=== PATIENT | male | born 1970 | race Caucasian/White ===

== ENCOUNTER 2016-10-11 20:11 | Emergency (ER) | payer OTHER ==
[~2016-10-11] VITALS: Ht 177.8 cm; Wt 88.5 kg
[~2016-10-11 20:11] MED LIST: BACLOFEN; INSU3INS6 SUBCUT; LANTUS; LOSA25TA12 PO; NAPROXEN; NEURONTIN; NOVOLOG SUBCUT; PREG300C PO; TRAMADOL
[2016-10-11] MEDS ORDERED: SODIUM CHLORIDE 0.9% 1,000 ML IV ONE (20:32)
[2016-10-11] MEDS ORDERED: KETOROLAC 30MG/ML VIAL IV STA (20:32)
[2016-10-11] MEDS ORDERED: ONDANSETRON HCL 4MG/2ML VIAL IV STA (20:32)
[2016-10-11 20:55] LABS: CHLORIDE 101 mEq/L (98-107)
[2016-10-11 20:58] LABS: INR 0.9; PROTHROMBIN TIME 9.7 sec
[2016-10-11 20:59] LABS: BASOPHILS % 0.5 % (0.0-2.0); EOSINOPHILS % 2.8 % (0.0-5.0); HEMATOCRIT. 37.1 % (42.0-52.0); HEMOGLOBIN. 12.5 g/dL (14.0-18.0); LYMPHOCYTES % 25.8 % (20.0-50.0); MEAN CORPUSCULAR HEMOGLOBIN 28.1 pg (28.0-32.0); MEAN CORPUSCULAR VOLUME 83.4 fL (80.0-94.0); MEAN PLATELET VOLUME 8.9 fl (7.4-10.4); MONOCYTES % 8.3 % (2.0-8.0); NEUTROPHILS % 62.6 % (40.0-76.0); PLATELET 216 x1000/uL (130-400); RED BLOOD CELL COUNT 4.44 mill/uL (4.7-6.1); RED CELL DISTRIBUTION WIDTH 13.5 % (11.6-14.6)
[2016-10-11 21:04] LABS: CARBON DIOXIDE 27 mEq/L (21-32)
[2016-10-11] MEDS ORDERED: MORPHINE SULFATE 4 MG/ML CPJ (NOT FOR IM USE) IV ONE (22:30)
[2016-10-11 22:48] VITALS: BP 136/82
== END 2016-10-11 23:47 | disposition home or self-care (01) ==
LOC: ER 20:12
DX: E11.65 Type 2 diabetes mellitus with hyperglycemia (principal); R51 Headache; Z79.4 Long term (current) use of insulin; Z98.1 Arthrodesis status
CPT/HCPCS: 36415; 70450; 80053; 82962; 85025; 85610; 93005; 96361; 96374; 96375; 99285; J1885; J2405; Z7610; J7030

== ENCOUNTER 2017-06-08 07:49 | Emergency (ER) | payer OTHER ==
[~2017-06-08] VITALS: Ht 165.1 cm; Wt 96.0 kg
[2017-06-08] MEDS ORDERED: KETOROLAC 30MG/ML VIAL IV STA (08:31)
[2017-06-08] MEDS ORDERED: ONDANSETRON HCL 4MG/2ML VIAL IV STA (08:31)
[2017-06-08] MEDS ORDERED: FAMOTIDINE 20MG/2ML VIAL IV STA (08:31)
[2017-06-08 08:54] LABS: BASOPHILS % 0.6 % (0.0-2.0); HEMATOCRIT. 41.4 % (42.0-52.0); HEMOGLOBIN. 13.3 g/dL (14.0-18.0); LYMPHOCYTES % 22.1 % (20.0-50.0); MEAN CORPUSCULAR HEMOGLOBIN 27.4 pg (28.0-32.0); MEAN PLATELET VOLUME 8.6 fl (7.4-10.4); MONOCYTES % 6.6 % (2.0-8.0); NEUTROPHILS % 69.7 % (40.0-76.0); PLATELET 279 x1000/uL (130-400); RED BLOOD CELL COUNT 4.87 mill/uL (4.7-6.1); RED CELL DISTRIBUTION WIDTH 13.7 % (11.6-14.6)
[2017-06-08 09:00] LABS: INR 0.9; PROTHROMBIN TIME 9.5 sec (9.4-11.6)
[2017-06-08 09:01] LABS: CHLORIDE 97 mEq/L (98-107)
[2017-06-08] MEDS ORDERED: SODIUM CHLORIDE 0.9% 1,000 ML IV ONE (09:30)
[2017-06-08] MEDS ORDERED: MORPHINE SULFATE 10 MG/ML CPJ IV ONE (11:15)
[2017-06-08 11:31] LABS: CLARITY URINE CLEAR (CLEAR); COLOR URINE YELLOW (YELLOW); KETONES URINE 2+ (NEGATIVE); LEUKOCYTE ESTERASE URINE NEGATIVE (NEGATIVE); NITRITE URINE NEGATIVE (NEGATIVE); OCCULT BLOOD URINE 1+ (NEGATIVE); PROTEIN URINE 3+ (NEGATIVE); SPECIFIC GRAVITY URINE 1.034 (1.005-1.030); UROBILINOGEN URINE 0.2 E.U./dL (0.2-1.0)
[2017-06-08 13:21] VITALS: BP 134/74
== END 2017-06-08 13:30 | disposition home or self-care (01) ==
LOC: ER 07:49
DX: R10.11 Right upper quadrant pain (principal); R74.8 Abnormal levels of other serum enzymes; E11.65 Type 2 diabetes mellitus with hyperglycemia; I10 Essential (primary) hypertension; Z79.4 Long term (current) use of insulin; Z98.890 Other specified postprocedural states
CPT/HCPCS: 36415; 76705; 80053; 81003; 82962; 83690; 85025; 85610; 96361; 96374; 96375; 99285; J1885; J2270; J2405; J3490; J7030; Z7610

== ENCOUNTER 2018-02-17 08:44 | Inpatient (IN) | payer OTHER ==
[~2018-02-17] VITALS: Ht 165.1 cm; Wt 97.5 kg
[~2018-02-17 08:44] MED LIST changes: -BACLOFEN; +INSLIS SUBCUT; -INSU3INS6 SUBCUT; -LANTUS; +LEVVL SQ; -LOSA25TA12 PO; +LOSA50TA20 MT; -NAPROXEN; -NEURONTIN; -NOVOLOG SUBCUT; -TRAMADOL
[2018-02-17] MEDS ORDERED: MORPHINE SULFATE 4 MG/ML CPJ (NOT FOR IM USE) IV STA (10:07)
[2018-02-17] MEDS ORDERED: ONDANSETRON HCL 4MG/2ML INJ IV STA (10:07)
[2018-02-17] MEDS ORDERED: VANCOMYCIN 1 G PREMIX 200 ML IV ONE (10:15)
[2018-02-17] MEDS ORDERED: PIPERACILLIN/TAZ 3.375G PREMIX 50 ML IV ONE (10:15)
[2018-02-17] MEDS ORDERED: SODIUM CHLORIDE 0.9% 1000ML BAG (SEPSIS BOLUS) IV ONE (10:15)
[2018-02-17 12:00] LABS: HEMATOCRIT. 35.8 % (42.0-52.0); HEMOGLOBIN. 11.8 g/dL (14.0-18.0); MEAN CORPUSCULAR HEMOGLOBIN 27.8 pg (28.0-32.0); MEAN CORPUSCULAR VOLUME 84.6 fL (80.0-94.0); MEAN PLATELET VOLUME 9.3 fl (7.4-10.4); PLATELET 303 x1000/uL (130-400); RED BLOOD CELL COUNT 4.23 mill/uL (4.7-6.1); RED CELL DISTRIBUTION WIDTH 13.6 % (11.6-14.6)
[2018-02-17 12:09] LABS: CHLORIDE 98 mEq/L (98-107)
[2018-02-17 12:22] LABS: PLATELET ESTIMATE NORMAL
[2018-02-17 14:10] VITALS: BP 177/97
[2018-02-17] MEDS ORDERED: ACETAMINOPHEN 325MG TABLET PO PRN (14:30)
[2018-02-17] MEDS ORDERED: DEXTROSE 50% WATER 50ML SYRINGE IV PRN (15:00)
[2018-02-17] MEDS ORDERED: HYDROCODONE/ACETAMINOPHEN 5/325MG TABLET PO PRN (15:00)
[2018-02-17] MEDS ORDERED: ONDANSETRON HCL 4MG/2ML INJ IV PRN (15:00)
[2018-02-17] MEDS ORDERED: SODIUM CHLORIDE 0.9% 1,000 ML IV SCH (15:45)
[2018-02-17] MEDS ORDERED: BLOOD SUGAR DIAGNOSTIC STRIP TEST SCH (17:20)
[2018-02-17 17:37] VITALS: BP 143/78
[2018-02-17] MEDS ORDERED: INSULIN LISPRO 100 UNITS/ML SUBCUT SCH (17:50)
[2018-02-17 17:53] VITALS: BP 143/78
[2018-02-17] MEDS ORDERED: VANCOMYCIN 1 G PREMIX 200 ML IV SCH (18:00)
[2018-02-18] MEDS ORDERED: ENOXAPARIN 40MG/0.4ML SYR SUBCUT SCH (09:00)
== END 2018-02-17 18:20 | disposition short-term general hospital (02) | DRG 720 ==
LOC: ER 08:44 → EDBEDREQ 10:14 → 6EST 12:48 → EDBEDREQ 12:53 → ENRESERV 13:11
PROVIDERS: ADMIT Internal Medicine; ATTEND Internal Medicine
DX: A41.9 Sepsis, unspecified organism (principal); E11.65 Type 2 diabetes mellitus with hyperglycemia; I10 Essential (primary) hypertension; L03.116 Cellulitis of left lower limb; R79.82 Elevated C-reactive protein (CRP); Z79.4 Long term (current) use of insulin; Z79.899 Other long term (current) drug therapy
CPT/HCPCS: 36415; 71045; 73562; 82962; 83605; 84145; 84550; 86140; 93005; 93971; 96365; 96368; 96375; 99291; J1815; J2270; J2405; J2543; J3370; J7030

== ENCOUNTER 2018-03-13 18:29 | Inpatient (IN) | payer OTHER ==
[~2018-03-13] VITALS: Ht 165.1 cm; Wt 109.3 kg
[2018-03-13 23:21] LABS: CLARITY URINE CLEAR (CLEAR); COLOR URINE YELLOW (YELLOW); KETONES URINE NEGATIVE (NEGATIVE); LEUKOCYTE ESTERASE URINE NEGATIVE (NEGATIVE); NITRITE URINE NEGATIVE (NEGATIVE); OCCULT BLOOD URINE NEGATIVE (NEGATIVE); PH URINE 5.5 (4.5-8.0); PROTEIN URINE 2+ (NEGATIVE); SPECIFIC GRAVITY URINE 1.012 (1.005-1.030); UROBILINOGEN URINE 0.2 E.U./dL (0.2-1.0)
[2018-03-13 23:33] LABS: BASOPHILS % 1.2 % (0.0-2.0); EOSINOPHILS % 7.6 % (0.0-5.0); HEMATOCRIT. 22.5 % (42.0-52.0); HEMOGLOBIN. 7.5 g/dL (14.0-18.0); LYMPHOCYTES % 13.9 % (20.0-50.0); MEAN CORPUSCULAR HEMOGLOBIN 28.1 pg (28.0-32.0); MEAN CORPUSCULAR VOLUME 84.1 fL (80.0-94.0); MEAN PLATELET VOLUME 7.7 fl (7.4-10.4); MONOCYTES % 9.1 % (2.0-8.0); NEUTROPHILS % 68.2 % (40.0-76.0); PLATELET 396 x1000/uL (130-400); RED BLOOD CELL COUNT 2.67 mill/uL (4.7-6.1); RED CELL DISTRIBUTION WIDTH 15.1 % (11.6-14.6)
[2018-03-13 23:39] LABS: CHLORIDE 103 mEq/L (98-107)
[2018-03-13 23:43] LABS: PARTIAL THROMBOPLASTIN TIME 28.9 sec (23.4-31.0); PROTHROMBIN TIME 10.4 sec (9.1-11.1)
[2018-03-14] MEDS ORDERED: ALBUTEROL (0.083%) 2.5MG/3ML NEB HHN ONE (00:15)
[2018-03-14] MEDS ORDERED: DEXTROSE 50% WATER 50ML SYRINGE IV ONE (00:15)
[2018-03-14] MEDS ORDERED: INSULIN REGULAR (HUMULIN R) 300UNITS/3ML IV ONE (00:15)
[2018-03-14] MEDS ORDERED: SODIUM POLYSTYRENE SULFONATE 15 G/60 ML BOT PO ONE (00:15)
[2018-03-14] MEDS ORDERED: SODIUM BICARBONATE 8.4% 1 MEQ/ML 50ML SYR IV ONE (00:15)
[2018-03-14] MEDS ORDERED: DEXTROSE 50% WATER 50ML SYRINGE IV PRN (09:45)
[2018-03-14] MEDS ORDERED: ONDANSETRON HCL 4MG/2ML INJ IV PRN (09:45)
[2018-03-14] MEDS ORDERED: ACETAMINOPHEN 325MG TABLET PO ONE (09:45)
[2018-03-14 09:55] VITALS: BP 162/91
[2018-03-14] MEDS ORDERED: ACETAMINOPHEN 325MG TABLET PO PRN (10:30)
[2018-03-14] MEDS ORDERED: PREG150C MT (10:43)
[2018-03-14] MEDS ORDERED: CEPH250C2 MT (11:33)
[2018-03-14] MEDS: BLOOD SUGAR DIAGNOSTIC STRIP TEST SCH ×3 (12:10→21:05)
[2018-03-14] MEDS: CLONIDINE 0.1MG TABLET PO PRN (12:22)
[2018-03-14 12:34] VITALS: BP 159/92
[2018-03-14] MEDS: INSULIN LISPRO 100 UNITS/ML SUBCUT SCH ×3 (12:40→21:14)
[2018-03-14] MEDS ORDERED: CEPHALEXIN MONOHYDRATE MT SCH (13:00)
[2018-03-14 15:54] VITALS: BP 157/86
[2018-03-14] MEDS: PREGABALIN 75MG CAPSULE PO SCH (16:58)
[2018-03-14] MEDS ORDERED: MEDICATION NOT ON FORMULARY EA (Pregabalin (Lyrica) 1 CAP) MT SCH (17:00)
[2018-03-14] MEDS ORDERED: INSULIN DETEMIR SQ SCH (17:00)
[2018-03-14 17:02] LABS: EOSINOPHILS % 5.9 % (0.0-5.0); HEMATOCRIT. 21.9 % (42.0-52.0); HEMOGLOBIN. 7.4 g/dL (14.0-18.0); LYMPHOCYTES % 17.5 % (20.0-50.0); MEAN CORPUSCULAR HEMOGLOBIN 28.6 pg (28.0-32.0); MEAN CORPUSCULAR VOLUME 84.4 fL (80.0-94.0); MEAN PLATELET VOLUME 8.3 fl (7.4-10.4); MONOCYTES % 9.8 % (2.0-8.0); NEUTROPHILS % 65.8 % (40.0-76.0); PLATELET 391 x1000/uL (130-400); RED CELL DISTRIBUTION WIDTH 15.5 % (11.6-14.6)
[2018-03-14 18:13] LABS: PHOSPHORUS 5.8 mg/dL (2.5-4.9)
[2018-03-14 20:00] VITALS: BP 157/102
[2018-03-14] MEDS ORDERED: FUROSEMIDE 40MG/4ML VIAL IVP NR (21:00)
[2018-03-14] MEDS: HEPARIN 5000 UNITS/ML VIAL SUBCUT SCH (21:13)
[2018-03-14] MEDS ORDERED: ALBUMIN HUMAN 25GM/100ML (25%) IV NR (21:30)
[2018-03-14] MEDS ORDERED: SODIUM POLYSTYRENE SULFONATE 15 G/60 ML BOT PO NR (21:30)
[2018-03-15] VITALS (10 sets, daily range): BP systolic 148–185; BP diastolic 74–101
[2018-03-15] MEDS: CLONIDINE 0.1MG TABLET PO PRN ×2 (00:38→19:02)
[2018-03-15] MEDS: INSULIN LISPRO 100 UNITS/ML SUBCUT SCH ×4 (06:34→21:10)
[2018-03-15] MEDS: BLOOD SUGAR DIAGNOSTIC STRIP TEST SCH ×4 (06:34→21:10)
[2018-03-15 06:39] LABS: BASOPHILS % 1.5 % (0.0-2.0); EOSINOPHILS % 10.3 % (0.0-5.0); MEAN CORPUSCULAR VOLUME 84.6 fL (80.0-94.0); MEAN PLATELET VOLUME 8.2 fl (7.4-10.4); MONOCYTES % 9.9 % (2.0-8.0); NEUTROPHILS % 59.3 % (40.0-76.0); PHOSPHORUS 5.6 mg/dL (2.5-4.9); PLATELET 374 x1000/uL (130-400); RED BLOOD CELL COUNT 2.43 mill/uL (4.7-6.1); RED CELL DISTRIBUTION WIDTH 14.9 % (11.6-14.6)
[2018-03-15 07:46] LABS: HEMATOCRIT. 20.5 % (42.0-52.0); HEMOGLOBIN. 6.8 g/dL (14.0-18.0)
[2018-03-15] MEDS ORDERED: SODIUM POLYSTYRENE SULFONATE 15 G/60 ML BOT PO SCH (09:15)
[2018-03-15 09:53] LABS: BG DEOXYHEMOGLOBIN 6.8 % (0.0-5.0); BG FRACTION INSPIRED OXYGEN 21; BG HCO3 ACT 28.7 mmol/L (22.0-26.0); BG METHEMOGLOBIN 0.2 % (0.0-1.5); BG OXYGEN SATURATION 93.1 % (92.0-98.5); BG PCO2 43.9 mmHg (35.0-45.0); BG PH 7.433 (7.350-7.450); BG PO2 67.3 mmHg (75.0-100.0); BG SAMPLE SITE LEFT RADIAL; BG TOTAL HEMOGLOBIN 7.5 g/dL (12.0-18.0); BG VENT MODE ROOM AIR
[2018-03-15] MEDS: FUROSEMIDE 40MG/4ML VIAL IVP SCH ×2 (11:17→19:40)
[2018-03-15] MEDS: PREGABALIN 75MG CAPSULE PO SCH ×2 (11:18→17:50)
[2018-03-15] MEDS: HEPARIN 5000 UNITS/ML VIAL SUBCUT SCH ×2 (11:18→21:09)
[2018-03-16] VITALS: BP 148/85
[2018-03-16 04:00] VITALS: BP 155/91
[2018-03-16] MEDS: FUROSEMIDE 40MG/4ML VIAL IVP SCH (05:33)
[2018-03-16] MEDS: INSULIN LISPRO 100 UNITS/ML SUBCUT SCH ×2 (06:26→11:50)
[2018-03-16] MEDS: BLOOD SUGAR DIAGNOSTIC STRIP TEST SCH ×2 (06:26→11:10)
[2018-03-16 07:33] LABS: BASOPHILS % 1.3 % (0.0-2.0); EOSINOPHILS % 10.2 % (0.0-5.0); HEMATOCRIT. 23.4 % (42.0-52.0); HEMOGLOBIN. 7.8 g/dL (14.0-18.0); LYMPHOCYTES % 19.5 % (20.0-50.0); MEAN CORPUSCULAR HEMOGLOBIN 28.2 pg (28.0-32.0); MEAN CORPUSCULAR VOLUME 84.7 fL (80.0-94.0); MEAN PLATELET VOLUME 8.2 fl (7.4-10.4); MONOCYTES % 8.7 % (2.0-8.0); NEUTROPHILS % 60.3 % (40.0-76.0); PLATELET 346 x1000/uL (130-400); RED BLOOD CELL COUNT 2.76 mill/uL (4.7-6.1); RED CELL DISTRIBUTION WIDTH 14.9 % (11.6-14.6)
[2018-03-16 08:00] VITALS: BP 168/89
[2018-03-16] MEDS: PREGABALIN 75MG CAPSULE PO SCH (08:31)
[2018-03-16] MEDS: HEPARIN 5000 UNITS/ML VIAL SUBCUT SCH (08:31)
[2018-03-16 09:52] LABS: PHOSPHORUS 5.5 mg/dL (2.5-4.9)
[2018-03-16] MEDS: CLONIDINE 0.1MG TABLET PO PRN (10:39)
[2018-03-16 12:00] VITALS: BP 150/77
[2018-03-16] MEDS ORDERED: ALBUMIN HUMAN 25GM/100ML (25%) IV SCH (15:00)
[2018-03-16 16:00] VITALS: BP 145/77
[2018-03-16 16:47] VITALS: BP 145/85
== END 2018-03-16 18:50 | disposition home or self-care (01) | DRG 470 ==
LOC: ER 18:29 → ENRESERV 03-14 08:07 → 8WST 03-14 10:26
PROVIDERS: ADMIT Internal Medicine; ATTEND Internal Medicine
PROC: 30233N1 Transfusion of Nonautologous Red Blood Cells into Peripheral Vein, Percutaneous Approach (ICD-10-PCS; principal; 2018-03-15)
DX: I12.9 Hypertensive chronic kidney disease with stage 1 through stage 4 chronic kidney disease, or unspecified chronic kidney disease (principal); N17.0 Acute kidney failure with tubular necrosis; E43 Unspecified severe protein-calorie malnutrition; E87.5 Hyperkalemia; E11.22 Type 2 diabetes mellitus with diabetic chronic kidney disease; E83.39 Other disorders of phosphorus metabolism; T36.8X5A Adverse effect of other systemic antibiotics, initial encounter; D64.9 Anemia, unspecified; N04.9 Nephrotic syndrome with unspecified morphologic changes; E78.5 Hyperlipidemia, unspecified; R60.1 Generalized edema; N18.1 Chronic kidney disease, stage 1; Y92.009 Unspecified place in unspecified non-institutional (private) residence as the place of occurrence of the external cause; X58.XXXA Exposure to other specified factors, initial encounter; Z83.3 Family history of diabetes mellitus; Z82.49 Family history of ischemic heart disease and other diseases of the circulatory system; Z88.1 Allergy status to other antibiotic agents; D50.8 Other iron deficiency anemias
CPT/HCPCS: 36415; 36600; 71045; 74176; 80048; 82375; 82550; 82805; 82962; 83010; 83615; 83735; 83880; 84100; 84484; 86850; 86900; 86920; 93005; 93970; 94644; 96374; 99285; J1644; J1815; J1940; J3490; J7050; J7611; P9016; P9047

== ENCOUNTER 2018-12-20 16:29 | Emergency (ER) | payer OTHER ==
[~2018-12-20] VITALS: Ht 172.7 cm; Wt 90.0 kg
[~2018-12-20 16:29] MED LIST changes: +CEPH250C2 MT; -LOSA50TA20 MT; +PREG150C MT; -PREG300C PO
[2018-12-20] MEDS ORDERED: SODIUM CHLORIDE 0.9% 1,000 ML IV ONE ×2 (18:27→22:45)
[2018-12-20] MEDS ORDERED: METOCLOPRAMIDE HCL 10MG/2ML VIAL IV ONE (18:30)
[2018-12-20 18:47] LABS: BASOPHILS % 0.8 % (0.0-2.0); EOSINOPHILS % 2.9 % (0.0-5.0); HEMATOCRIT. 36.8 % (42.0-52.0); HEMOGLOBIN. 12.2 g/dL (14.0-18.0); LYMPHOCYTES % 35.1 % (20.0-50.0); MEAN CORPUSCULAR HEMOGLOBIN 28.2 pg (28.0-32.0); MEAN CORPUSCULAR VOLUME 84.9 fL (80.0-94.0); MEAN PLATELET VOLUME 8.6 fl (7.4-10.4); MONOCYTES % 11.3 % (2.0-8.0); NEUTROPHILS % 49.9 % (40.0-76.0); PLATELET 272 x1000/uL (130-400); RED BLOOD CELL COUNT 4.33 mill/uL (4.7-6.1); RED CELL DISTRIBUTION WIDTH 13.3 % (11.6-14.6)
[2018-12-20 18:54] LABS: CHLORIDE 103 mEq/L (98-107)
[2018-12-20] MEDS ORDERED: INSULIN REGULAR (HUMULIN R) 300UNITS/3ML SUBCUT ONE (19:15)
[2018-12-20 23:49] VITALS: BP 108/70
== END 2018-12-21 02:47 | disposition left against medical advice (07) ==
LOC: ER 16:29 → CANBEDREQ 12-21 03:53
DX: N17.9 Acute kidney failure, unspecified (principal); E11.65 Type 2 diabetes mellitus with hyperglycemia; I10 Essential (primary) hypertension; Z79.4 Long term (current) use of insulin; Z88.3 Allergy status to other anti-infective agents
CPT/HCPCS: 36415; 70450; 80053; 82010; 82962; 85025; 96361; 96372; 96374; 99284; J1815; J2765; J7030

== ENCOUNTER 2019-05-12 16:09 | Emergency (ER) | payer OTHER ==
[~2019-05-12] VITALS: Ht 165.1 cm; Wt 90.0 kg
[2019-05-12] MEDS ORDERED: ACETAMINOPHEN 325MG TABLET PO STA (23:51)
[2019-05-13] MEDS ORDERED: SODIUM CHLORIDE 0.9% 1000ML BAG (SEPSIS BOLUS) IV ONE
[2019-05-13] MEDS ORDERED: VANCOMYCIN 1 G PREMIX 200 ML IV ONE
[2019-05-13] MEDS ORDERED: CEFEPIME HCL 2000MG/VIAL INJ IV ONE
[2019-05-13] MEDS ORDERED: CEFEPIME 2,000 MG in DEXT 5% WATER 100 ML IV NR (00:15)
[2019-05-13 00:42] LABS: EOSINOPHILS % 0.8 % (0.0-5.0); HEMATOCRIT. 34.1 % (42.0-52.0); HEMOGLOBIN. 11.1 g/dL (14.0-18.0); LYMPHOCYTES % 13.6 % (20.0-50.0); MEAN CORPUSCULAR HEMOGLOBIN 27.9 pg (28.0-32.0); MEAN CORPUSCULAR VOLUME 85.5 fL (80.0-94.0); MEAN PLATELET VOLUME 9.3 fl (7.4-10.4); MONOCYTES % 9.3 % (2.0-8.0); NEUTROPHILS % 75.3 % (40.0-76.0); PLATELET 387 x1000/uL (130-400); RED BLOOD CELL COUNT 3.99 mill/uL (4.7-6.1); RED CELL DISTRIBUTION WIDTH 15.1 % (11.6-14.6)
[2019-05-13 00:50] LABS: CHLORIDE 112 mEq/L (98-107)
[2019-05-13 00:51] LABS: INR 0.9; PROTHROMBIN TIME 9.8 sec (9.6-11.0)
[2019-05-13 02:33] LABS: CLARITY URINE CLEAR (CLEAR); COLOR URINE YELLOW (YELLOW); KETONES URINE 1+ (NEGATIVE); LEUKOCYTE ESTERASE URINE NEGATIVE (NEGATIVE); NITRITE URINE NEGATIVE (NEGATIVE); OCCULT BLOOD URINE 1+ (NEGATIVE); PH URINE 6.5 (4.5-8.0); PROTEIN URINE 4+ (NEGATIVE); SPECIFIC GRAVITY URINE 1.024 (1.005-1.030)
[2019-05-13 02:53] VITALS: BP 154/77
== END 2019-05-13 03:33 | disposition short-term general hospital (02) ==
LOC: ER 16:09 → CANBEDREQ 05-13 08:08
DX: E11.621 Type 2 diabetes mellitus with foot ulcer (principal); M79.5 Residual foreign body in soft tissue; I10 Essential (primary) hypertension; Z88.1 Allergy status to other antibiotic agents; Z79.4 Long term (current) use of insulin; Z79.899 Other long term (current) drug therapy
CPT/HCPCS: 36415; 73630; 80053; 81003; 82962; 83605; 84145; 84484; 85025; 85610; 87040; 87086; 93005; 96365; 96368; 99291; J0692; J3370; J7030; J7060

== ENCOUNTER 2019-05-16 11:26 | Emergency (ER) | payer OTHER ==
[~2019-05-16] VITALS: Ht 165.1 cm; Wt 82.0 kg
[2019-05-16] MEDS ORDERED: CEFTRIAXONE 1 G PREMIX 50 ML IV ONE (13:00)
[2019-05-16] MEDS ORDERED: KETOROLAC 15MG/ML VIAL IV ONE (13:00)
[2019-05-16] MEDS ORDERED: ACETAMINOPHEN 325MG TABLET PO ONE (13:00)
[2019-05-16] MEDS ORDERED: SODIUM CHLORIDE 0.9% 1000ML BAG (SEPSIS BOLUS) IV ONE (13:00)
[2019-05-16] MEDS ORDERED: VANCOMYCIN 1 G PREMIX 200 ML IV ONE (13:00)
[2019-05-16 13:22] LABS: HEMATOCRIT. 30.2 % (42.0-52.0); HEMOGLOBIN. 9.9 g/dL (14.0-18.0); MEAN CORPUSCULAR HEMOGLOBIN 27.5 pg (28.0-32.0); MEAN CORPUSCULAR VOLUME 83.7 fL (80.0-94.0); MEAN PLATELET VOLUME 8.9 fl (7.4-10.4); PLATELET 445 x1000/uL (130-400); RED CELL DISTRIBUTION WIDTH 14.4 % (11.6-14.6)
[2019-05-16 13:29] LABS: CHLORIDE 104 mEq/L (98-107)
[2019-05-16 13:35] LABS: INR 0.9; PARTIAL THROMBOPLASTIN TIME 36.4 sec (23.4-31.0); PROTHROMBIN TIME 9.7 sec (9.6-11.0)
[2019-05-16 13:41] LABS: PLATELET ESTIMATE SLIGHTLY INCREASED
[2019-05-16] MEDS ORDERED: CLONIDINE 0.2MG TABLET PO ONE (14:15)
[2019-05-16 20:36] VITALS: BP 147/74
== END 2019-05-16 21:29 | disposition short-term general hospital (02) ==
LOC: ER 11:26
DX: S91.342A Puncture wound with foreign body, left foot, initial encounter (principal); L03.116 Cellulitis of left lower limb; I10 Essential (primary) hypertension; E78.00 Pure hypercholesterolemia, unspecified; E11.9 Type 2 diabetes mellitus without complications; X58.XXXA Exposure to other specified factors, initial encounter; Y93.9 Activity, unspecified; Y92.9 Unspecified place or not applicable; Z79.4 Long term (current) use of insulin
CPT/HCPCS: 36415; 71045; 73630; 80053; 83605; 84145; 84484; 85025; 85610; 85730; 87040; 93005; 93970; 96374; 96375; 99285; J0696; J1885; J3370; J7030

== ENCOUNTER 2019-11-05 07:47 | Emergency (ER) | payer OTHER ==
[~2019-11-05] VITALS: Ht 165.1 cm; Wt 84.0 kg
[2019-11-05 09:05] LABS: BASOPHILS % 0.8 % (0.0-2.0); EOSINOPHILS % 4.1 % (0.0-5.0); HEMATOCRIT. 31.5 % (42.0-52.0); HEMOGLOBIN. 10.4 g/dL (14.0-18.0); LYMPHOCYTES % 16.1 % (20.0-50.0); MEAN CORPUSCULAR HEMOGLOBIN 26.7 pg (28.0-32.0); MEAN CORPUSCULAR VOLUME 81.5 fL (80.0-94.0); MEAN PLATELET VOLUME 8.4 fl (7.4-10.4); MONOCYTES % 5.9 % (2.0-8.0); NEUTROPHILS % 73.1 % (40.0-76.0); PLATELET 284 x1000/uL (130-400); RED BLOOD CELL COUNT 3.87 mill/uL (4.7-6.1); RED CELL DISTRIBUTION WIDTH 16.7 % (11.6-14.6)
[2019-11-05 09:10] LABS: CHLORIDE 112 mEq/L (98-107)
[2019-11-05] MEDS ORDERED: HYDRALAZINE 20MG/ML VIAL IV NR (15:00)
[2019-11-05] MEDS ORDERED: CLONIDINE 0.1MG TABLET PO PRN (15:00)
[2019-11-05] MEDS ORDERED: FUROSEMIDE 40MG/4ML VIAL IVP NR (15:15)
[2019-11-05] MEDS ORDERED: DEXTROSE 50% WATER 50ML SYRINGE IV PRN (15:15)
[2019-11-05 15:37] VITALS: BP 153/76
[2019-11-05] MEDS ORDERED: BLOOD SUGAR DIAGNOSTIC STRIP TEST SCH (17:00)
[2019-11-05] MEDS ORDERED: INSULIN LISPRO 100 UNITS/ML SUBCUT SCH (18:20)
== END 2019-11-05 15:57 | disposition short-term general hospital (02) ==
LOC: ER 07:47 → CANBEDREQ 16:41
DX: I13.0 Hypertensive heart and chronic kidney disease with heart failure and stage 1 through stage 4 chronic kidney disease, or unspecified chronic kidney disease (principal); E11.22 Type 2 diabetes mellitus with diabetic chronic kidney disease; N18.9 Chronic kidney disease, unspecified; I50.9 Heart failure, unspecified; R60.1 Generalized edema; E78.00 Pure hypercholesterolemia, unspecified; D63.1 Anemia in chronic kidney disease; Z79.4 Long term (current) use of insulin
CPT/HCPCS: 36415; 71045; 80053; 83880; 84484; 85025; 93005; 96374; 96375; 99285; J0360; J1940

== ENCOUNTER 2019-11-11 20:53 | Inpatient (IN) | payer OTHER ==
[~2019-11-11] VITALS: Ht 172.7 cm; Wt 89.1 kg
[2019-11-11] MEDS ORDERED: NITROGLYCERIN OINT 1GM/INCH UDPKT TD ONE (22:15)
[2019-11-11] MEDS ORDERED: FUROSEMIDE 40MG/4ML VIAL IV ONE (22:15)
[2019-11-11 22:56] LABS: EOSINOPHILS % 4.7 % (0.0-5.0); HEMATOCRIT. 29.9 % (42.0-52.0); HEMOGLOBIN. 9.7 g/dL (14.0-18.0); LYMPHOCYTES % 17.6 % (20.0-50.0); MEAN CORPUSCULAR HEMOGLOBIN 27.1 pg (28.0-32.0); MEAN CORPUSCULAR VOLUME 83.5 fL (80.0-94.0); MEAN PLATELET VOLUME 9.6 fl (7.4-10.4); MONOCYTES % 6.3 % (2.0-8.0); NEUTROPHILS % 70.4 % (40.0-76.0); PLATELET 289 x1000/uL (130-400); RED BLOOD CELL COUNT 3.58 mill/uL (4.7-6.1); RED CELL DISTRIBUTION WIDTH 16.8 % (11.6-14.6)
[2019-11-11 22:57] LABS: CHLORIDE 112 mEq/L (98-107)
[2019-11-11] MEDS ORDERED: INSULIN REGULAR (HUMULIN R) 300UNITS/3ML IV ONE (23:30)
[2019-11-11] MEDS ORDERED: CALCIUM GLUCONATE 1,000 MG in DEXT 5% WATER 100 ML IV ONE (23:30)
[2019-11-11] MEDS ORDERED: DEXTROSE 50% WATER 50ML SYRINGE IV ONE (23:30)
[2019-11-11] MEDS ORDERED: ALBUTEROL (0.083%) 2.5MG/3ML NEB HHN SCH (23:30)
[2019-11-11] MEDS ORDERED: FUROSEMIDE 100MG/10ML VIAL IV ONE (23:30)
[2019-11-12] MEDS ORDERED: ASPIRIN 81MG TABLET PO ONE (00:30)
[2019-11-12] MEDS ORDERED: DEXT 5%/0.45% NACL 1000ML 1,000 ML IV SCH (02:45)
[2019-11-12 06:26] LABS: CHLORIDE 113 mEq/L (98-107)
[2019-11-12] MEDS ORDERED: FUROSEMIDE 40MG/4ML VIAL IV SCH (13:30)
[2019-11-12] MEDS ORDERED: IPRATROPIUM/ALBUTEROL 0.5-3(2.5)MG/3ML NEB HHN PRN (13:30)
[2019-11-12] MEDS ORDERED: ONDANSETRON HCL 4MG/2ML INJ IV PRN (13:30)
[2019-11-12] MEDS ORDERED: HYDROCODONE/ACETAMINOPHEN 5/325MG TABLET PO PRN (13:30)
[2019-11-12] MEDS ORDERED: CLONIDINE 0.1MG TABLET PO PRN (13:30)
[2019-11-12] MEDS ORDERED: ACETAMINOPHEN 325MG TABLET PO PRN (13:30)
[2019-11-12] MEDS: FUROSEMIDE 40MG/4ML VIAL IV SCH ×2 (13:45→22:24)
[2019-11-12] MEDS: ENOXAPARIN 40MG/0.4ML SYR SUBCUT SCH (14:00)
[2019-11-12 15:35] LABS: CREATINE KINASE MB FRACTION 7.6 ng/mL (0.5-3.6)
[2019-11-12 16:52] LABS: CLARITY URINE CLEAR (CLEAR); COLOR URINE YELLOW (YELLOW); KETONES URINE NEGATIVE (NEGATIVE); LEUKOCYTE ESTERASE URINE NEGATIVE (NEGATIVE); NITRITE URINE NEGATIVE (NEGATIVE); OCCULT BLOOD URINE TRACE (NEGATIVE); PH URINE 6.5 (4.5-8.0); PROTEIN URINE 3+ (NEGATIVE); SPECIFIC GRAVITY URINE 1.012 (1.005-1.030); UROBILINOGEN URINE 0.2 E.U./dL (0.2-1.0)
[2019-11-12 21:00] VITALS: BP 150/79
[2019-11-12] MEDS ORDERED: ATORVASTATIN CALCIUM 20MG TABLET PO SCH (21:00)
[2019-11-12 21:15] VITALS: BP 150/79
[2019-11-12] MEDS ORDERED: ATOR10TA69 PO (23:15)
[2019-11-12] MEDS ORDERED: POTA20TA82 MT (23:15)
[2019-11-12] MEDS ORDERED: AMLO10TA80 PO (23:15)
[2019-11-12] MEDS ORDERED: POTA20TA82 PO (23:15)
[2019-11-12] MEDS ORDERED: FURO40TA5 PO (23:15)
[2019-11-13] VITALS: BP 158/82
[2019-11-13 04:00] VITALS: BP 158/74
[2019-11-13] MEDS: FUROSEMIDE 40MG/4ML VIAL IV SCH (06:42)
[2019-11-13 07:17] LABS: BASOPHILS % 1.4 % (0.0-2.0); EOSINOPHILS % 6.2 % (0.0-5.0); HEMATOCRIT. 29.1 % (42.0-52.0); HEMOGLOBIN. 9.4 g/dL (14.0-18.0); MEAN CORPUSCULAR HEMOGLOBIN 26.8 pg (28.0-32.0); MEAN CORPUSCULAR VOLUME 82.7 fL (80.0-94.0); MEAN PLATELET VOLUME 9.4 fl (7.4-10.4); MONOCYTES % 6.3 % (2.0-8.0); NEUTROPHILS % 67.1 % (40.0-76.0); PLATELET 294 x1000/uL (130-400); RED BLOOD CELL COUNT 3.52 mill/uL (4.7-6.1); RED CELL DISTRIBUTION WIDTH 16.1 % (11.6-14.6)
[2019-11-13 07:28] LABS: CHLORIDE 110 mEq/L (98-107)
[2019-11-13] MEDS ORDERED: DEXTROSE 50% WATER 50ML SYRINGE IV PRN (07:30)
[2019-11-13 07:39] LABS: LDL CHOLESTEROL 66 mg/dL (5-100)
[2019-11-13 07:41] LABS: HDL CHOLESTEROL 32 mg/dL (40-59); T4 FREE 1.08 ng/dL (0.76-1.46)
[2019-11-13] MEDS: BLOOD SUGAR DIAGNOSTIC STRIP TEST SCH ×2 (07:53→13:18)
[2019-11-13 08:00] VITALS: BP 174/89
[2019-11-13] MEDS: INSULIN LISPRO 100 UNITS/ML SUBCUT SCH ×2 (08:10→14:39)
[2019-11-13] MEDS: ENOXAPARIN 40MG/0.4ML SYR SUBCUT SCH (08:20)
[2019-11-13] MEDS ORDERED: ASPIRIN 81MG TABLET PO SCH (09:00)
[2019-11-13] MEDS ORDERED: AMLODIPINE 10MG TABLET PO SCH (10:30)
[2019-11-13] MEDS ORDERED: HYDRALAZINE 20MG/ML VIAL IV PRN (10:30)
[2019-11-13] MEDS ORDERED: FURO-151 PO (11:53)
[2019-11-13] MEDS ORDERED: HYDR-4135 MT (11:53)
[2019-11-13] MEDS ORDERED: ALBU90AE INH (11:53)
[2019-11-13] MEDS ORDERED: ASPI-1497 MT (11:53)
[2019-11-13 12:00] VITALS: BP 136/88
[2019-11-13 12:06] LABS: BG BASE EXCESS 0.2 mmol/L (-2.0-2.0); BG CARBOXYHEMOGLOBIN 0.3 % (0.5-1.5); BG DEOXYHEMOGLOBIN 5.6 % (0.0-5.0); BG FRACTION INSPIRED OXYGEN 30; BG HCO3 ACT 24.6 mmol/L (22.0-26.0); BG METHEMOGLOBIN 0.3 % (0.0-1.5); BG OXYGEN SATURATION 94.4 % (92.0-98.5); BG OXYHEMOGLOBIN 93.8 % (94.0-97.0); BG PCO2 38.8 mmHg (35.0-45.0); BG PO2 71.6 mmHg (75.0-100.0); BG PRESSURE SUPPORT 8; BG SAMPLE SITE RIGHT RADIAL; BG TOTAL HEMOGLOBIN 10.5 g/dL (12.0-18.0); BG VENT MODE VENT - CPAP
[2019-11-13] MEDS ORDERED: ATOR20TA MT (12:38)
[2019-11-13] MEDS ORDERED: HYDRALAZINE HCL 50MG TABLET PO SCH (14:00)
[2019-11-13 15:37] VITALS: BP 136/88
[2019-11-15 14:11] LABS: ALBUMIN URINE 49.8 % (.); ALPHA-1-GLOBULIN URINE 10.2 % (.); ALPHA-2-GLOBULIN URINE 9.1 % (.); BETA GLOBULIN URINE 16.2 % (.); GAMMA GLOBULIN URINE 14.7 % (.); TOTAL PROTEIN RANDOM URINE 300.3 mg/dL (Not Estab.)
== END 2019-11-13 17:07 | disposition home or self-care (01) | DRG 133 ==
LOC: ER 20:53 → CANRESERV 11-12 09:25 → ENRESERV 11-12 09:25 → 7WST 11-12 21:08
PROVIDERS: ADMIT Internal Medicine; ATTEND Internal Medicine
DX: J96.01 Acute respiratory failure with hypoxia (principal); I13.0 Hypertensive heart and chronic kidney disease with heart failure and stage 1 through stage 4 chronic kidney disease, or unspecified chronic kidney disease; E78.00 Pure hypercholesterolemia, unspecified; E87.8 Other disorders of electrolyte and fluid balance, not elsewhere classified; D64.9 Anemia, unspecified; E43 Unspecified severe protein-calorie malnutrition; E78.5 Hyperlipidemia, unspecified; E87.5 Hyperkalemia; Z20.828 Contact with and (suspected) exposure to other viral communicable diseases; N18.9 Chronic kidney disease, unspecified; I50.43 Acute on chronic combined systolic (congestive) and diastolic (congestive) heart failure; M62.82 Rhabdomyolysis; E11.22 Type 2 diabetes mellitus with diabetic chronic kidney disease; Z68.29 Body mass index [BMI] 29.0-29.9, adult; Z79.4 Long term (current) use of insulin; Z79.899 Other long term (current) drug therapy; N17.0 Acute kidney failure with tubular necrosis
CPT/HCPCS: 36415; 36600; 71045; 76770; 80053; 80061; 81003; 82375; 82550; 82553; 82805; 82962; 83036; 83880; 84156; 84166; 84439; 84443; 84484; 85025; 87635; 93005; 96365; 96372; 96375; 96376; 99285; J0610; J1650; J1815; J1940; J7060

== ENCOUNTER 2022-04-27 14:20 | Inpatient (IN) | payer MEDICAID, OTHER ==
[~2022-04-27] VITALS: Ht 167.6 cm; Wt 98.0 kg
[~2022-04-27 14:20] MED LIST changes: +ALBU90AE INH; +ASPI-1497 MT; +ATOR10TA69 PO; +ATOR20TA MT; -CEPH250C2 MT; +FURO-151 PO; +HYDR-4135 MT; +POTA-205 PO
[2022-04-27 19:39] LABS: CHLORIDE 113 mEq/L (98-107)
[2022-04-27 19:43] LABS: BASOPHILS % 1.2 % (0.0-2.0); EOSINOPHILS % 7.5 % (0.0-5.0); HEMATOCRIT. 30.6 % (42.0-52.0); LYMPHOCYTES % 17.3 % (20.0-50.0); MEAN CORPUSCULAR HEMOGLOBIN 27.9 pg (28.0-32.0); MEAN CORPUSCULAR VOLUME 85.8 fL (80.0-94.0); MEAN PLATELET VOLUME 9.4 fl (7.4-10.4); MONOCYTES % 7.2 % (2.0-8.0); NEUTROPHILS % 66.8 % (40.0-76.0); PLATELET 180 x1000/uL (130-400); RED BLOOD CELL COUNT 3.57 mill/uL (4.7-6.1); RED CELL DISTRIBUTION WIDTH 17.1 % (11.6-14.6)
[2022-04-28] MEDS ORDERED: FUROSEMIDE 40MG/4ML VIAL IVP ONE (02:45)
[2022-04-28 03:48] LABS: CLARITY URINE CLEAR (CLEAR); COLOR URINE YELLOW (YELLOW); KETONES URINE TRACE (NEGATIVE); LEUKOCYTE ESTERASE URINE NEGATIVE (NEGATIVE); NITRITE URINE NEGATIVE (NEGATIVE); OCCULT BLOOD URINE 2+ (NEGATIVE); PH URINE 5.5 (4.5-8.0); PROTEIN URINE 4+ (NEGATIVE); SPECIFIC GRAVITY URINE 1.019 (1.005-1.030); UROBILINOGEN URINE 0.2 E.U./dL (0.2-1.0)
[2022-04-28 10:40] VITALS: BP 164/90
[2022-04-28 12:00] VITALS: BP 169/93
[2022-04-28] MEDS ORDERED: ACETAMINOPHEN 325MG TABLET PO PRN (14:15)
[2022-04-28] MEDS ORDERED: POTASSIUM CHLORIDE 20MEQ TABLET SR PO SCH (14:15)
[2022-04-28] MEDS ORDERED: ONDANSETRON HCL 4MG/2ML INJ IV PRN (14:15)
[2022-04-28] MEDS ORDERED: DEXTROSE 50% WATER 50ML SYRINGE IV PRN (14:30)
[2022-04-28] MEDS: HYDRALAZINE HCL 50MG TABLET PO SCH ×2 (14:51→22:11)
[2022-04-28] MEDS: FUROSEMIDE 40MG/4ML VIAL IVP SCH (14:51)
[2022-04-28 16:00] VITALS: BP 183/93
[2022-04-28] MEDS ORDERED: AMLO2.5T45 MT (16:01)
[2022-04-28] MEDS ORDERED: FERR325T30 PO (16:01)
[2022-04-28] MEDS ORDERED: DAPA10TA MT (16:01)
[2022-04-28] MEDS ORDERED: CLON0.2T MT (16:01)
[2022-04-28] MEDS ORDERED: SILD20TA MT (16:01)
[2022-04-28] MEDS: INSULIN LISPRO 100 UNITS/ML SUBCUT SCH (17:10)
[2022-04-28] MEDS: BLOOD SUGAR DIAGNOSTIC STRIP TEST SCH ×2 (17:19→21:41)
[2022-04-28] MEDS: CLONIDINE 0.1MG TABLET PO PRN (17:44)
[2022-04-28] MEDS: ENOXAPARIN 40MG/0.4ML SYR SUBCUT SCH (17:45)
[2022-04-28] MEDS: INSULIN LISPRO (LOW DOSE) 100 UNITS/ML SUBCUT SCH ×2 (17:46→22:52)
[2022-04-28 20:00] VITALS: BP 160/81
[2022-04-28] MEDS ORDERED: ATORVASTATIN CALCIUM 10MG TABLET PO SCH (21:00)
[2022-04-28] MEDS: INSULIN GLARGINE 100 UNITS/ML SUBCUT SCH (22:51)
[2022-04-29] VITALS: BP_SYST 129; BP_SYST 156; BP_DIAS 72; BP_DIAS 74
[2022-04-29 00:32] LABS: CREATINE KINASE MB FRACTION 9.7 ng/mL (0.5-3.6)
[2022-04-29] MEDS: FUROSEMIDE 40MG/4ML VIAL IVP SCH ×2 (02:00→14:39)
[2022-04-29 04:00] VITALS: BP 169/99
[2022-04-29] MEDS: HYDRALAZINE HCL 50MG TABLET PO SCH ×2 (05:18→14:39)
[2022-04-29] MEDS: BLOOD SUGAR DIAGNOSTIC STRIP TEST SCH ×4 (05:21→22:00)
[2022-04-29] MEDS: INSULIN LISPRO (LOW DOSE) 100 UNITS/ML SUBCUT SCH ×4 (05:21→22:00)
[2022-04-29] MEDS: INSULIN LISPRO 100 UNITS/ML SUBCUT SCH ×3 (05:22→17:10)
[2022-04-29 06:46] LABS: BASOPHILS % 1.8 % (0.0-2.0); EOSINOPHILS % 5.1 % (0.0-5.0); HEMATOCRIT. 27.9 % (42.0-52.0); HEMOGLOBIN. 9.1 g/dL (14.0-18.0); LYMPHOCYTES % 13.5 % (20.0-50.0); MEAN CORPUSCULAR HEMOGLOBIN 28.4 pg (28.0-32.0); MEAN CORPUSCULAR VOLUME 87.5 fL (80.0-94.0); MONOCYTES % 8.3 % (2.0-8.0); NEUTROPHILS % 71.3 % (40.0-76.0); RED BLOOD CELL COUNT 3.19 mill/uL (4.7-6.1); RED CELL DISTRIBUTION WIDTH 16.9 % (11.6-14.6)
[2022-04-29 06:58] LABS: CREATINE KINASE MB FRACTION 8.1 ng/mL (0.5-3.6)
[2022-04-29 07:59] LABS: PLATELET 159 x1000/uL (130-400)
[2022-04-29 08:00] VITALS: BP 162/97
[2022-04-29] MEDS: ASPIRIN 81MG EC TABLET PO SCH (09:00)
[2022-04-29] MEDS: INSULIN GLARGINE 100 UNITS/ML SUBCUT SCH (09:53)
[2022-04-29 16:00] VITALS: BP 183/95
[2022-04-29] MEDS: AMLODIPINE 5MG TABLET PO SCH (17:14)
[2022-04-29] MEDS: CLONIDINE 0.1MG TABLET PO PRN (17:14)
[2022-04-29] MEDS: ENOXAPARIN 40MG/0.4ML SYR SUBCUT SCH (17:15)
[2022-04-29] MEDS ORDERED: ALBUMIN HUMAN 25GM/100ML (25%) IV NR (17:30)
[2022-04-29 20:00] VITALS: BP 159/88
[2022-04-29] MEDS ORDERED: ATORVASTATIN CALCIUM 20MG TABLET PO SCH (21:00)
[2022-04-29] MEDS: HYDRALAZINE HCL 100MG TABLET PO SCH (22:38)
[2022-04-30] VITALS: BP 169/99
[2022-04-30] MEDS: CLONIDINE 0.1MG TABLET PO PRN (00:54)
[2022-04-30] MEDS: FUROSEMIDE 40MG/4ML VIAL IVP SCH ×2 (02:05→13:42)
[2022-04-30 04:00] VITALS: BP 150/87
[2022-04-30] MEDS: INSULIN LISPRO 100 UNITS/ML SUBCUT SCH ×4 (04:00→16:00)
[2022-04-30] MEDS: BLOOD SUGAR DIAGNOSTIC STRIP TEST SCH ×4 (04:26→16:34)
[2022-04-30] MEDS ORDERED: DEXTROSE 50% WATER 50ML SYRINGE IV PRN (04:30)
[2022-04-30] MEDS ORDERED: DEXTROSE 10% WATER 500 ML IV NR (05:00)
[2022-04-30] MEDS: HYDRALAZINE HCL 100MG TABLET PO SCH ×2 (05:05→13:38)
[2022-04-30 06:45] LABS: BASOPHILS % 1.5 % (0.0-2.0); EOSINOPHILS % 6.9 % (0.0-5.0); HEMATOCRIT. 27.2 % (42.0-52.0); HEMOGLOBIN. 8.9 g/dL (14.0-18.0); LYMPHOCYTES % 14.1 % (20.0-50.0); MEAN CORPUSCULAR HEMOGLOBIN 28.1 pg (28.0-32.0); MEAN CORPUSCULAR VOLUME 86.2 fL (80.0-94.0); MEAN PLATELET VOLUME 9.6 fl (7.4-10.4); MONOCYTES % 8.8 % (2.0-8.0); NEUTROPHILS % 68.7 % (40.0-76.0); PLATELET 161 x1000/uL (130-400); RED BLOOD CELL COUNT 3.16 mill/uL (4.7-6.1); RED CELL DISTRIBUTION WIDTH 16.6 % (11.6-14.6)
[2022-04-30 06:53] LABS: PHOSPHORUS 4.4 mg/dL (2.5-4.9)
[2022-04-30 08:00] VITALS: BP 161/89
[2022-04-30] MEDS: ASPIRIN 81MG EC TABLET PO SCH (08:36)
[2022-04-30] MEDS: AMLODIPINE 5MG TABLET PO SCH (08:37)
[2022-04-30 12:00] VITALS: BP 146/80
[2022-04-30 16:00] VITALS: BP 154/79
[2022-04-30] MEDS: ENOXAPARIN 40MG/0.4ML SYR SUBCUT SCH (17:06)
[2022-04-30 18:17] VITALS: BP 154/79
[2022-05-01 09:09] LABS: IMMUNOGLOBULIN A 188 mg/dL (90-386); IMMUNOGLOBULIN G 1217 mg/dL (603-1613); IMMUNOGLOBULIN M 103 mg/dL (20-172)
== END 2022-04-30 18:42 | disposition home health service (06) ==
LOC: ER 14:20 → EDBEDREQ 04-28 03:47 → EDBEDREQSVC 04-28 03:47 → EDBEDREQTM 04-28 03:47 → 7EST 04-28 09:02 → EDBEDREQTM 04-28 09:03 → EDBEDREQ 04-28 09:03
PROVIDERS: ADMIT Internal Medicine; ATTEND Internal Medicine
DX: K80.20 Calculus of gallbladder without cholecystitis without obstruction (principal); I50.23 Acute on chronic systolic (congestive) heart failure; E43 Unspecified severe protein-calorie malnutrition; N17.9 Acute kidney failure, unspecified; D72.10 Eosinophilia, unspecified; N04.9 Nephrotic syndrome with unspecified morphologic changes; E11.22 Type 2 diabetes mellitus with diabetic chronic kidney disease; D63.1 Anemia in chronic kidney disease; I13.0 Hypertensive heart and chronic kidney disease with heart failure and stage 1 through stage 4 chronic kidney disease, or unspecified chronic kidney disease; Z20.822 Contact with and (suspected) exposure to COVID-19; E78.00 Pure hypercholesterolemia, unspecified; I16.0 Hypertensive urgency; I25.10 Atherosclerotic heart disease of native coronary artery without angina pectoris; K76.9 Liver disease, unspecified; J98.11 Atelectasis; E78.5 Hyperlipidemia, unspecified; E11.65 Type 2 diabetes mellitus with hyperglycemia; N18.30 Chronic kidney disease, stage 3 unspecified; Z79.4 Long term (current) use of insulin; Z68.34 Body mass index [BMI] 34.0-34.9, adult; Z83.3 Family history of diabetes mellitus; Z82.49 Family history of ischemic heart disease and other diseases of the circulatory system
CPT/HCPCS: 36415; 71045; 74176; 76700; 76770; 80048; 80053; 81003; 82550; 82553; 82570; 82784; 82962; 83036; 83735; 83880; 84100; 84156; 84484; 85025; 86334; 86335; 87426; 93005; 93306; 93970; 99285; J1650; J1815; J1940; P9047

== ENCOUNTER 2022-07-03 15:21 | Emergency (ER) | payer MEDICAID, OTHER ==
[~2022-07-03] VITALS: Ht 167.6 cm; Wt 98.0 kg
[~2022-07-03 15:21] MED LIST changes: +AMLO2.5T45 MT; +CLON0.2T MT; +DAPA10TA MT; +FERR325T30 PO; +SILD20TA MT
[2022-07-03 15:33] VITALS: BP 123/68
[2022-07-03] MEDS ORDERED: IBUP-2028 PO (20:16)
== END 2022-07-03 21:11 | disposition home or self-care (01) ==
LOC: ER 15:21
DX: S52.592A Other fractures of lower end of left radius, initial encounter for closed fracture (principal); E78.00 Pure hypercholesterolemia, unspecified; I12.0 Hypertensive chronic kidney disease with stage 5 chronic kidney disease or end stage renal disease; N18.6 End stage renal disease; Z99.2 Dependence on renal dialysis; W01.0XXA Fall on same level from slipping, tripping and stumbling without subsequent striking against object, initial encounter; Y93.89 Activity, other specified; Y92.018 Other place in single-family (private) house as the place of occurrence of the external cause
CPT/HCPCS: 29105; 73090; 73110; 73130; 99284; A4565

== ENCOUNTER 2022-08-14 15:24 | Emergency (ER) | payer MEDICAID, OTHER ==
[~2022-08-14] VITALS: Ht 165.1 cm; Wt 80.0 kg
[~2022-08-14 15:24] MED LIST changes: +IBUP-2028 PO
[2022-08-14 18:17] LABS: BASOPHILS % 1.3 % (0.0-2.0); EOSINOPHILS % 4.2 % (0.0-5.0); HEMATOCRIT. 36.4 % (42.0-52.0); HEMOGLOBIN. 11.9 g/dL (14.0-18.0); LYMPHOCYTES % 18.3 % (20.0-50.0); MEAN CORPUSCULAR HEMOGLOBIN 28.6 pg (28.0-32.0); MEAN CORPUSCULAR VOLUME 87.5 fL (80.0-94.0); MEAN PLATELET VOLUME 9.9 fl (7.4-10.4); MONOCYTES % 8.4 % (2.0-8.0); NEUTROPHILS % 67.8 % (40.0-76.0); PLATELET 124 x1000/uL (130-400); RED BLOOD CELL COUNT 4.16 mill/uL (4.7-6.1); RED CELL DISTRIBUTION WIDTH 17.1 % (11.6-14.6)
[2022-08-14 18:24] LABS: CHLORIDE 103 mEq/L (98-107)
[2022-08-14 19:23] LABS: PARTIAL THROMBOPLASTIN TIME 31.3 sec (23.4-31.0); PROTHROMBIN TIME 11.1 sec (9.6-11.0)
[2022-08-14 20:00] VITALS: BP 120/81
== END 2022-08-14 21:12 | disposition home or self-care (01) ==
LOC: ER 15:24
DX: R58 Hemorrhage, not elsewhere classified (principal); E78.00 Pure hypercholesterolemia, unspecified; I10 Essential (primary) hypertension; Z79.899 Other long term (current) drug therapy
CPT/HCPCS: 36415; 73660; 80053; 85025; 85610; 85730; 99284; Z7610

== ENCOUNTER 2022-08-17 21:01 | Emergency (ER) | payer MEDICAID, OTHER ==
[~2022-08-17] VITALS: Ht 167.6 cm; Wt 89.9 kg
[2022-08-17 21:07] VITALS: BP 157/90
== END 2022-08-17 23:33 | disposition home or self-care (01) ==
LOC: ER 21:01
DX: Z48.00 Encounter for change or removal of nonsurgical wound dressing (principal); E11.9 Type 2 diabetes mellitus without complications; I10 Essential (primary) hypertension; E78.00 Pure hypercholesterolemia, unspecified; Z79.899 Other long term (current) drug therapy
CPT/HCPCS: 99281

== ENCOUNTER 2023-06-28 10:59 | Emergency (ER) | payer MEDICARE, MEDICAID ==
[~2023-06-28] VITALS: Ht 172.7 cm; Wt 70.0 kg
[~2023-06-28 10:59] MED LIST changes: -HYDR-4135 MT; +HYDR50TA40 MT
[2023-06-28 11:03] VITALS: BP 164/90; PULSE 87; RESP 18; TEMP 98.2; O2SAT 99
[2023-06-28 12:14] LABS: BASOPHILS % 0.6 % (0.0-2.0); EOSINOPHILS % 4.7 % (0.0-5.0); HEMATOCRIT. 27.1 % (42.0-52.0); HEMOGLOBIN. 8.6 g/dL (14.0-18.0); LYMPHOCYTES % 14.4 % (20.0-50.0); MEAN CORPUSCULAR HEMOGLOBIN 28.9 pg (28.0-32.0); MEAN CORPUSCULAR HGB CONC 31.7 g/dL (31.0-37.0); MEAN CORPUSCULAR VOLUME 91.2 fL (80.0-94.0); MEAN PLATELET VOLUME 9.1 fl (7.4-10.4); MONOCYTES % 13.9 % (2.0-8.0); NEUTROPHILS % 66.4 % (40.0-76.0); PLATELET 133 x1000/uL (130-400); RED BLOOD CELL COUNT 2.98 mill/uL (4.7-6.1); RED CELL DISTRIBUTION WIDTH 15.7 % (11.6-14.6); WHITE BLOOD COUNT 3.9 x1000/uL (4.5-11.0)
[2023-06-28] MEDS: SODIUM CHLORIDE 0.9% 1000ML BAG (SEPSIS BOLUS) IV ONE (12:47)
[2023-06-28] MEDS: CEFTRIAXONE 2GM/50ML 50 ML IV ONE (12:47)
[2023-06-28 12:48] LABS: INR 0.9; PROTHROMBIN TIME 10.5 sec (9.6-11.0)
[2023-06-28 12:52] LABS: ALANINE AMINOTRANSFERASE 10 IU/L (10-49); ALBUMIN 4.2 g/dL (3.2-4.8); ASPARTATE AMINOTRANSFERASE 20 IU/L (<34); BILIRUBIN TOTAL 0.4 mg/dL (0.1-1.0); CALCIUM 8.3 mg/dL (8.7-10.4); CARBON DIOXIDE 27 mEq/L (21-32); CHLORIDE 100 mEq/L (98-107); CREATININE 3.5 mg/dL (0.6-1.3); GLUCOSE 85 mg/dL (70-105); POTASSIUM 4.2 mEq/L (3.5-5.1); PROTEIN TOTAL 7.7 g/dL (6.0-8.3); SODIUM 135 mEq/L (136-145); UREA NITROGEN BLOOD 28 mg/dL (9-23)
[2023-06-28] MEDS ORDERED: AMOX1TAB16 MT (13:26)
== END 2023-06-28 13:50 | disposition home or self-care (01) ==
LOC: ER 10:59 → CANBEDREQ 13:24 → ER 13:50
DX: K04.7 Periapical abscess without sinus (principal); R68.89 Other general symptoms and signs; I10 Essential (primary) hypertension; E78.00 Pure hypercholesterolemia, unspecified; E11.9 Type 2 diabetes mellitus without complications; Z79.4 Long term (current) use of insulin; Z79.899 Other long term (current) drug therapy
CPT/HCPCS: 99285; 96365; 71045; 80053; 83605; 85025; 85610; 87040; 36415; 84145; 93005; J0696; J7030

== ENCOUNTER 2024-05-04 12:20 | Emergency (ER) | payer OTHER, MEDICAID ==
[~2024-05-04] VITALS: Ht 165.1 cm; Wt 81.0 kg
[~2024-05-04 12:20] MED LIST changes: -ASPI-1497 MT; -ATOR10TA69 PO; -ATOR20TA MT; +CLOP-31 MT; -IBUP-2028 PO; +LIP40 PO; -SILD20TA MT; +SILD20TA13 MT
[2024-05-04 13:18] VITALS: BP 117/63; PULSE 82; RESP 16; TEMP 98.3; O2SAT 95
== END 2024-05-04 15:19 | disposition home or self-care (01) ==
LOC: ER 12:20
DX: I77.0 Arteriovenous fistula, acquired (principal); E11.9 Type 2 diabetes mellitus without complications; I10 Essential (primary) hypertension; E78.00 Pure hypercholesterolemia, unspecified; Z79.899 Other long term (current) drug therapy; Z79.4 Long term (current) use of insulin
CPT/HCPCS: 99281

== ENCOUNTER 2024-05-11 09:14 | Emergency (ER) | payer MEDICARE, MEDICAID ==
[~2024-05-11] VITALS: Ht 165.1 cm; Wt 81.0 kg
[2024-05-11 09:17] VITALS: O2SAT 98
[2024-05-11 09:22] VITALS: BP 130/69; PULSE 88; RESP 16; TEMP 98.3; O2SAT 98
== END 2024-05-11 11:05 | disposition home or self-care (01) ==
LOC: ER 09:14
DX: T82.520A Displacement of surgically created arteriovenous fistula, initial encounter (principal); I12.0 Hypertensive chronic kidney disease with stage 5 chronic kidney disease or end stage renal disease; E11.22 Type 2 diabetes mellitus with diabetic chronic kidney disease; N18.6 End stage renal disease; Z48.02 Encounter for removal of sutures; Z98.890 Other specified postprocedural states
CPT/HCPCS: 93005; 99283